=== PATIENT | male | born 1970 | race Native Hawaiian/Other Pacific Islander ===

== ENCOUNTER 2021-03-31 10:35 | Emergency (ER) | payer OTHER ==
[2021-03-31] MEDS ORDERED: ONDANSETRON 4 MG/2 ML INJ IV ONE (10:57)
[2021-03-31] MEDS ORDERED: MORPHINE 4 MG/1 ML INJ IV ONE (10:57)
--- NOTE | 2021-03-31 11:01 | Emergency Department Report ---
ED Abdominal Pain HPI - General Chief Complaint: Abdominal Pain Stated Complaint: ABD PAIN Time Seen by Provider: 03/31/21 10:57 Source: patient Mode of arrival: Stretcher Limitations: No Limitations - History of Present Illness Initial Comments: Patient is 50 years old male with no significant past medical history. Patient presented to the ER with a sudden onset of left pain that radiated down to his left lower quadrant area and suprapubic area. Patient stated that pain started this morning. Patient stated that pain is sharp, 10 out of 10. Patient stated the pain associated with nausea and vomiting. He also reported increased urinary frequency and dysuria. No hematuria. MD Complaint: abdominal pain, flank pain Location: L flank Radiation: suprapubic Migration to: no migration Severity: severe Severity scale (0 -10): 10 Quality: sharp Associated Symptoms: nausea, vomiting - Related Data Allergies Allergy/AdvReac Type Severity Reaction Status Date / Time No Known Allergies Allergy Unverified 03/31/21 11:36 ED Review of Systems ROS: Stated complaint: ABD PAIN Other details as noted in HPI Comment: All other systems reviewed and negative Constitutional: denies: chills, fever Respiratory: denies: cough, shortness of breath, SOB with exertion Cardiovascular: denies: chest pain, palpitations Gastrointestinal: abdominal pain, nausea, vomiting. denies: diarrhea, constipation, hematemesis, melena, hematochezia Genitourinary: urgency, dysuria, frequency. denies: hematuria Musculoskeletal: back pain Neurological: denies: headache, weakness, numbness, paresthesias, confusion, abnormal gait ED Physical Exam - General Limitations: No Limitations General appearance: alert, in distress (Secondary to pain.) - Head Head exam: Present: atraumatic, normocephalic, normal inspection - Eye Eye exam: Present: normal appearance - ENT ENT exam: Present: mucous membranes dry - Neck Neck exam: Present: normal inspection, full ROM. Absent: tenderness, meningismus - Respiratory Respiratory exam: Present: normal lung sounds bilaterally - Cardiovascular Cardiovascular Exam: Present: regular rate, normal rhythm, normal heart sounds - GI/Abdominal GI/Abdominal exam: Present: soft, normal bowel sounds. Absent: distended, tenderness, guarding, rebound, rigid, organomegaly, mass, bruit, pulsatile mass, hernia - Extremities Exam Extremities exam: Present: normal inspection, full ROM, normal capillary refill. Absent: tenderness - Back Exam Back exam: Present: normal inspection, full ROM. Absent: CVA tenderness (R), CVA tenderness (L) - Neurological Exam Neurological exam: Present: alert, oriented X3, CN II-XII intact, normal gait, reflexes normal. Absent: motor sensory deficit - Psychiatric Psychiatric exam: Present: anxious. Absent: homicidal ideation, suicidal ideation - Skin Skin exam: Present: warm, intact, normal color ED Course Vital Signs 03/31/21 03/31/21 03/31/21 11:23 11:28 11:53 Temperature 98.0 F Pulse Rate 54 L Respiratory 20 20 Rate Blood Pressure 143/62 [Left] O2 Sat by Pulse 99 99 Oximetry 03/31/21 03/31/21 03/31/21 12:10 12:40 12:52 Temperature 98.0 F Pulse Rate 50 L Respiratory 18 18 16 Rate Blood Pressure 127/76 [Left] O2 Sat by Pulse 100 Oximetry ED Medical Decision Making - Lab Data Result diagrams: 03/31/21 11:46 03/31/21 11:46 - Radiology Data Radiology results: report reviewed - Medical Decision Making Patient is 50 years old male with no significant past medical history. Patient presented to the ER with a sudden onset of left pain that radiated down to his left lower quadrant area and suprapubic area. Patient stated that pain started this morning. Patient stated that pain is sharp, 10 out of 10. Patient stated the pain associated with nausea and vomiting. He also reported increased urinary frequency and dysuria. No hematuria. Patient received morphine, Dilaudid and Toradol. Patient stated that he is feeling much better now. Labs reviewed and is unremarkable. CT abdomen and pelvis showed a 4 mm obstructing left ureteral stone with mild hydronephrosis. Patient advised to follow-up with urologist in the next 2 to 3 days and to return to the ER if he develop any new symptoms. Critical care attestation.: If time is entered above; I have spent that time in minutes in the direct care of this critically ill patient, excluding procedure time. ED Disposition Clinical Impression: Acute abdominal pain, Left ureteral stone Disposition: HOME / SELF CARE / HOMELESS Is pt being admited?: No Condition: Stable Instructions: Abdominal Pain, Adult, [id number], Renal Colic, Kidney Stones Referrals: CELENA ALVAREZ MD [Staff Physician] - 3-5 Days Forms: Work/School Release Form(ED)
[2021-03-31] MEDS ORDERED: SODIUM CHLORIDE 0.9% 1000 ML 1,000 ML IV ONE (11:02)
[2021-03-31 12:02] LABS: Basophils % (Auto) 0.2 % (0.0-1.8); Eosinophils % (Auto) 0.1 % (0.0-4.3); Hematocrit 43.9 % (35.5-45.6); Hemoglobin 15.4 gm/dl (11.8-15.2); Lymphocytes # (Auto) 0.9 K/mm3 (1.2-5.4); Lymphocytes % (Auto) 8.7 % (13.4-35.0); Mean Corpuscular HGB Conc 35 % (32-34); Mean Corpuscular Volume 94 fl (84-94); Monocytes # (Auto) 0.5 K/mm3 (0.0-0.8); Monocytes % (Auto) 4.4 % (0.0-7.3); Platelet Count 128 K/mm3 (140-440); Red Blood Count 4.65 M/mm3 (3.65-5.03); Red Cell Distribution Width 12.8 % (13.2-15.2)
[2021-03-31] MEDS ORDERED: HYDROmorphone 1 MG/1 ML INJ IV ONE (12:06)
[2021-03-31 12:32] LABS: Alanine Aminotransferase 15 units/L (7-56); Albumin 4.4 g/dL (3.9-5); BUN/Creatinine Ratio 19; Bilirubin,Direct 0.2 mg/dL (0-0.2); Blood Urea Nitrogen 21 mg/dL (9-20); Hemolysis Index 5
--- NOTE | 2021-03-31 13:08 | Cat Scan Report ---
CT ABDOMEN AND PELVIS WITHOUT CONTRAST HISTORY: Abdominal Pain . COMPARISON: None. TECHNIQUE: CT images of the abdomen and pelvis were obtained without administration of intravenous co ntrast. All CT scans at this location are performed using CT dose reduction for ALARA by means of au tomated exposure control. FINDINGS: Limited evaluation of the lung bases is unremarkable, aside from a small benign-appearing calcified g ranuloma in the right middle lobe. There is a 4 mm obstructing calculus at the left ureterovesical junction. There is resultant moderate left hydroureteronephrosis. No additional left urinary tract calculi. The right kidney is unremarkab le.. The liver, spleen, pancreas, adrenal glands, and gallbladder are unremarkable. Gastrointestinal tract shows no evidence of bowel wall thickening or pathologic distention. There are no pathologically enl arged lymph nodes. No free intraperitoneal gas or fluid. The appendix is visualized and is normal in appearance. Urinary bladder is unremarkable. Partially visualized oblique lucency with irregular borders along the inferior aspect of left scapula . Question whether this represents the site of prior fracture. The lack of intravenous and oral contrast limits evaluation of solid parenchymal organs, vasculature, and gastrointestinal tract. IMPRESSION: There is a 4 mm obstructing calculus at the left ureterovesical junction with resultant moderate left hydroureteronephrosis. Partially visualized oblique lucency with irregular borders along the inferior aspect of left scapula . Question whether this represents site of prior fracture. Recommend clinical correlation with histor y of injury to this region. If there is no history of prior injury, dedicated left scapula imaging is recommended. Signer Name: Bassam Lees MD Signed: 03/31/2021 1:03 PM Workstation Name: [id number]
[2021-03-31] MEDS ORDERED: KETOROLAC 30 MG/1 ML INJ IV ONE (13:20)
[2021-03-31] MEDS ORDERED: KETOROLAC 60 MG/2 ML INJ IM ONE (13:50)
[2021-03-31 15:23] LABS: Bilirubin,Urine NEG (Negative); Blood,Urine MOD (Negative); Color,Urine Yellow (Yellow); Mucus,Urine FEW /HPF
[2021-03-31 15:38] VITALS: BP 99/50
== END 2021-03-31 16:09 | disposition home or self-care (01) ==
LOC: ED 10:35
DX: N20.1 Calculus of ureter (principal); R10.32 Left lower quadrant pain
CPT/HCPCS: 36415; 74176; 80048; 80076; 81001; 83690; 85025; 96372; 96374; 96375; 99284; J1170; J1885; J2270; J2405; J7030